=== PATIENT | female | born 1975 | race Caucasian/White ===

== ENCOUNTER → 2022-03-04 | Outpatient (CLI) | payer BC ==
--- NOTE | 2022-03-11 11:49 | MM ---
Reason for exam: screening (asymptomatic). Last mammogram was performed 3 years and 8 months ago. History: Patient is postmenopausal. Physical Findings: A clinical breast exam by your physician is recommended on an annual basis and results should be correlated with mammographic findings. MG 3D Screening Mammo W/Cad Bilateral CC and MLO view(s) were taken. Prior study comparison: June 19, 2018, mammogram, performed at [facility]. April 15, 2016, mammogram, performed at [facility]. The breast tissue is almost entirely fat. No significant changes when compared with prior studies. ASSESSMENT: Benign, BI-RAD 2 RECOMMENDATION: Routine screening mammogram of both breasts in 1 year.
== END | disposition home or self-care (01) ==
LOC: RADMAMWWP 16:10
PROVIDERS: ATTEND Obstetrics & Gynecology
DX: Z12.31 Encounter for screening mammogram for malignant neoplasm of breast (principal); Z78.0 Asymptomatic menopausal state
CPT/HCPCS: 77063; 77067

== ENCOUNTER → 2023-10-05 | Outpatient (CLI) | payer BC ==
--- NOTE | 2023-10-06 17:16 | MM ---
Reason for Exam: Screening (asymptomatic). Last mammogram was performed 1 year(s) and 7 month(s) ago. Patient History: Menarche at age 12. First Full-Term at age 26. Left ovary removed at age 39. Right ovary removed at age 39. Hysterectomy at age 39. Postmenopausal. Patient has history of breast feeding. Risk Values: Migdalia 5 year model risk: 1.0%. NCI Lifetime model risk: 10.0%. Prior Study Comparison: 04/15/2016 Screening Mammogram, [place]. 06/19/2018 Screening Mammogram, [place]. 03/04/2022 Bilateral Screening Mammogram, [facility]. Tissue Density: There are scattered fibroglandular densities. Findings: Analyzed By CAD. Pattern appears symmetrical and stable. No significant interval change is evident. No suspicious groups of microcalcifications, spiculated or lobular masses, architectural distortion or other secondary signs of malignancy are mammographically apparent. Overall Assessment: Negative, BI-RAD 1 Management: Screening Mammogram of both breasts in 1 year. A negative mammogram report should not preclude additional follow up of suspicious palpable abnormalities. Patient should continue monthly self breast exam. A clinical breast exam by your physician is recommended on an annual basis and results should be correlated with mammographic findings. Electronically signed and approved by: Richard Walker D.O. Radiologis
== END | disposition home or self-care (01) ==
LOC: RADMAMWWP 15:13
PROVIDERS: ATTEND Student in an Organized Health Care Education/Training Program
DX: Z12.31 Encounter for screening mammogram for malignant neoplasm of breast (principal); Z78.0 Asymptomatic menopausal state
CPT/HCPCS: 77063; 77067

== ENCOUNTER → 2024-01-19 | Outpatient (CLI) | payer BC ==
--- NOTE | 2024-01-19 15:57 | FL ---
EXAMINATION TYPE: FL UGI DATE OF EXAM: 01/19/2024 COMPARISON: NONE HISTORY: 48-year-old female R1 3.10, epigastric pain, difficulty swallowing. TECHNIQUE: A double contrast UGI study is performed. A total of 1 minute 46 seconds of fluoroscopic time was utilized during procedure and 46 images obtained. Total dose area product (DAP) in uGy*m?, mGy*cm? (or similar): 20. FINDINGS: The esophagus shows normal motility and emptying into the stomach. There is persistent mucosal irregularity along the distal third esophagus and possible mild focal str icture located a few centimeters above the GE junction. The remainder of the proximal to mid thoracic esophagus shows normal course, caliber, and motility. N o abnormal filling defect is seen here. There is a small hiatal hernia. Mild gastroesophageal reflux is seen during the course of the exam. The stomach shows normal distensibility, peristalsis, and mucosal folds. No evidence of any mass or ulcer disease. The duodenal bulb, sweep, and proximal small bowel loops are unremarkable. IMPRESSION: 1. Small hiatal hernia and mild gastroesophageal reflux. 2. Fine mucosal irregularity along the distal third esophagus. Consider a nonspecific esophagitis. Di rect visualization is advised for further assessment. 3. In addition, there may be a mild focal stricture located a few centimeters above the GE junction. 4. Stomach and duodenum show no specific abnormality.
== END | disposition home or self-care (01) ==
LOC: RADUSWWP 07:59
PROVIDERS: ATTEND Student in an Organized Health Care Education/Training Program
DX: K44.9 Diaphragmatic hernia without obstruction or gangrene (principal); K21.9 Gastro-esophageal reflux disease without esophagitis; R13.10 Dysphagia, unspecified
CPT/HCPCS: 74240

== ENCOUNTER → 2024-03-09 | Day surgery (SDC) | payer BC ==
[2024-03-07 12:00] VITALS: BMI 35.2
[~2024-03-09] MED LIST: PROPOFOL 10 MG/ML 20 ML VIAL IV ONE
[2024-03-09 11:29] VITALS: TEMP 97
[2024-03-09] MEDS: LIDOCAINE 1% (10MG/ML) FOR IV START INTRADERMA ONE (11:30)
[2024-03-09] MEDS: LACTATED RINGERS 1,000 ML IV SCH (11:30)
--- NOTE | 2024-03-09 13:00 | P.PCN ---
Date of Procedure: 03/09/24 Procedure(s) Performed: BRIEF HISTORY: Patient is a pleasant, 48-year-old pleasant white female scheduled for an upper endoscopy for evaluation of GERD and intermittent dysphagia to solids for the last 8 months duration. PROCEDURE PERFORMED: Esophagogastroduodenoscopy With biopsy and dilation. PREOPERATIVE DIAGNOSIS: GERD and intermittent dysphagia to solids. IV sedation per anesthesia. PROCEDURE: After informed consent was obtained, the patient was brought into the endoscopy unit. IV sedation was administered by Anesthesia under continuous monitoring. Initially the Olympus GIF-140 video endoscope was inserted into the mouth. Esophagus intubated without any difficulty. It was gradually advanced into the stomach and duodenum and carefully examined. The bulb and the second part of the duodenum appeared normal. The scope at this time was withdrawn to the stomach, adequately insufflated with air, and upon careful examination, mucosa of the antrum, Had mild gastritis and biopsies were done from this area. Mucosa of thebody, cardia and the fundus appeared normal. The scope was then withdrawn into the esophagus.Small hiatal hernia noted. The GE junction was located at 35 cm from the incisors. There was a distal esophageal stricture identified that was dilated using 15 mm TTS balloon for 30 seconds. Following the dilation there was some oozing at the site of dilation with mucosal tear. Further dilation was not performed. There were multiple mucosal rings with thickened esophageal folds in the mid and distal esophagus suspicious for years of age esophagitis and multiple biopsies were done from this area.The rest of esophagus appeared normal. There were no erosions or ulcerations seen and the patient tolerated the procedure well. IMPRESSION: 1. Distal esophageal stricture status post balloon dilation using 15 mm TTS balloon. 2. Multiple superficial mucosal rings with thickened esophageal folds involving the mid and distal esophagus suspicious for years of age esophagitis status post multiple biopsies. 3. Small hiatal hernia and mild antral gastritis RECOMMENDATIONS: The findings of this examination were discussed with the patient As well as a family. She was advised to follow with the biopsy results. She'll be on clear liquids for 2 hours. Continue with omeprazole 20 mg daily. Follow-up In office in 2 weeks..
[2024-03-09 13:37] VITALS: BP 120/78; PULSE 77; RESP 14
== END ==
LOC: ORWHC2ENDO 10:53
PROVIDERS: ATTEND Internal Medicine Gastroenterology
DX: K29.50 Unspecified chronic gastritis without bleeding (principal); K22.2 Esophageal obstruction; K44.9 Diaphragmatic hernia without obstruction or gangrene; K21.00 Gastro-esophageal reflux disease with esophagitis, without bleeding; F41.9 Anxiety disorder, unspecified; Z79.899 Other long term (current) drug therapy; Z90.49 Acquired absence of other specified parts of digestive tract; Z90.710 Acquired absence of both cervix and uterus
CPT/HCPCS: 88305; 43239; 43249; J2704; C1726